=== PATIENT | female | born 1990 | race Caucasian/White ===

== ENCOUNTER 2022-01-04 18:00 | Emergency (ER) | payer MEDICAID ==
[~2022-01-04] VITALS: Ht 170.1 cm; Wt 107.5 kg
[2022-01-04] MEDS ORDERED: KLONOPIN1 M1 PO (18:20)
[2022-01-04] MEDS ORDERED: LAMICTAL150 MG PO (18:22)
[2022-01-04] MEDS ORDERED: TRAZODONE150 MG PO (18:24)
[2022-01-04] MEDS ORDERED: 'CLONIDINE0.1 MG PO (18:24)
== END 2022-01-04 21:13 | disposition home or self-care (01) ==
LOC: ED 18:00
DX: T42.4X1A Poisoning by benzodiazepines, accidental (unintentional), initial encounter (principal); F41.9 Anxiety disorder, unspecified; Y92.89 Other specified places as the place of occurrence of the external cause